=== PATIENT | female | born 1975 | race African-American/Black ===

== ENCOUNTER 2020-10-28 03:16 | Emergency (ER) | payer SELFPAY ==
[2020-10-28 04:12] VITALS: BP 131/77
[2020-10-28 04:45] LABS: Basophils % (Auto) 0.4 % (0.0-1.8); Eosinophils # (Auto) 0.2 K/mm3 (0.0-0.4); Eosinophils % (Auto) 1.9 % (0.0-4.3); Hematocrit 38.7 % (30.3-42.9); Hemoglobin 13.3 gm/dl (10.1-14.3); Lymphocytes # (Auto) 1.2 K/mm3 (1.2-5.4); Lymphocytes % (Auto) 12.7 % (13.4-35.0); Mean Corpuscular HGB Conc 34 % (30-34); Mean Corpuscular Volume 90 fl (79-97); Monocytes # (Auto) 0.9 K/mm3 (0.0-0.8); Monocytes % (Auto) 9.5 % (0.0-7.3); Platelet Count 278 K/mm3 (140-440); Red Cell Distribution Width 12.6 % (13.2-15.2)
[2020-10-28 05:02] LABS: BUN/Creatinine Ratio 18; Blood Urea Nitrogen 9 mg/dL (7-17); Calcium 8.9 mg/dL (8.4-10.2); Hemolysis Index 7
--- NOTE | 2020-10-28 05:37 | XRay Report ---
CHEST 1 VIEW 10/28/2020 5:11 AM INDICATION / CLINICAL INFORMATION: Chest Pain. COMPARISON: None available. FINDINGS: SUPPORT DEVICES: None. HEART / MEDIASTINUM: No significant abnormality. LUNGS / PLEURA: No significant pulmonary or pleural abnormality. No pneumothorax. ADDITIONAL FINDINGS: No significant additional findings. IMPRESSION: 1. No acute findings. Signer Name: Alfonso Colmenares MD Signed: 10/28/2020 5:32 AM Workstation Name: [id number]
--- NOTE | 2020-10-28 09:09 | Emergency Department Report ---
ED General Adult HPI - General Chief complaint: Dyspnea/Respdistress Stated complaint: TIERA Time Seen by Provider: 10/28/20 08:19 Source: patient, family, EMS Mode of arrival: Ambulatory Limitations: Language Barrier - History of Present Illness Initial comments: Patient is a 45-year-old female with history of cerebral aneurysm diagnosed earlier this month at another facility presents emergency department for abrupt onset of shortness of breath, dizziness, and anxiousness at 3 AM which has since resolved. Patient denies headache, denies sensory changes, denies localized weakness. - Related Data Allergies Allergy/AdvReac Type Severity Reaction Status Date / Time No Known Allergies Allergy Unverified 10/28/20 03:40 ED Review of Systems ROS: Stated complaint: TIERA Other details as noted in HPI Comment: All other systems reviewed and negative ED Past Medical Hx - Past Medical History Previous Medical History?: Yes Additional medical history: Cerebral aneurysmAnuerysm surgery on Nov.11 usually goes to [facility] ED Physical Exam - General Limitations: Language Barrier General appearance: alert, in no apparent distress - Head Head exam: Present: atraumatic, normocephalic - Eye Eye exam: Present: normal appearance - ENT ENT exam: Present: mucous membranes moist - Neck Neck exam: Present: normal inspection - Respiratory Respiratory exam: Present: normal lung sounds bilaterally, other (Productive cough). Absent: respiratory distress - Cardiovascular Cardiovascular Exam: Present: regular rate, normal rhythm. Absent: systolic murmur, diastolic murmur, rubs, gallop - GI/Abdominal GI/Abdominal exam: Present: soft, normal bowel sounds - Extremities Exam Extremities exam: Present: normal inspection - Back Exam Back exam: Present: normal inspection - Neurological Exam Neurological exam: Present: alert, oriented X3 - Psychiatric Psychiatric exam: Present: normal affect, normal mood - Skin Skin exam: Present: warm, dry, intact, normal color. Absent: rash ED Course Vital Signs 10/28/20 03:20 Temperature 97.3 F L Pulse Rate 86 Respiratory 17 Rate Blood Pressure 131/77 O2 Sat by Pulse 100 Oximetry - Reevaluation(s) Reevaluation #1: 10/28/20 09:28 Patient evaluated in no acute distress asymptomatic. Patient presents with documentation from 3 separate emergency department visits this month in [facility] and has followed up with her primary care doctor in the meantime. Patient had various points has had CT head, CTA head and neck, D-dimer, cardiac echo. Carlos taylor has upcoming appointment with neurosurgery for evaluation of incidentally found cerebral aneurysm. Patient states at no point as she got coronavirus despite having ongoing productive cough in the emergency department. Patient is advised to follow-up with neurosurgery as scheduled, is advised to follow-up with primary care doctor in 1 to 2 days for reevaluation and coronavirus testing as an outpatient. Lungs remain clear to auscultation on discharge. ED Medical Decision Making - Lab Data Result diagrams: 10/28/20 03:53 10/28/20 03:53 Lab Results 10/28/20 10/28/20 10/28/20 Range/Units 03:53 03:53 03:53 WBC 9.5 (4.5-11.0) K/mm3 RBC 4.30 (3.65-5.03) M/mm3 Hgb 13.3 (10.1-14.3) gm/dl Hct 38.7 (30.3-42.9) % MCV 90 (79-97) fl MCH 31 (28-32) pg MCHC 34 (30-34) % RDW 12.6 L (13.2-15.2) % Plt Count 278 (140-440) K/mm3 Lymph % (Auto) 12.7 L (13.4-35.0) % [place] % (Auto) 9.5 H (0.0-7.3) % Eos % (Auto) 1.9 (0.0-4.3) % Baso % (Auto) 0.4 (0.0-1.8) % Lymph # (Auto) 1.2 (1.2-5.4) K/mm3 [place] # (Auto) 0.9 H (0.0-0.8) K/mm3 Eos # (Auto) 0.2 (0.0-0.4) K/mm3 Baso # (Auto) 0.0 (0.0-0.1) K/mm3 Seg Neutrophils % 75.5 H (40.0-70.0) % Seg Neutrophils # 7.2 (1.8-7.7) K/mm3 Sodium 137 (137-145) mmol/L Potassium 3.3 L (3.6-5.0) mmol/L Chloride 104.3 (98-107) mmol/L Carbon Dioxide 19 L (22-30) mmol/L Anion Gap 17 mmol/L BUN 9 (7-17) mg/dL Creatinine 0.5 L (0.6-1.2) mg/dL Estimated GFR > 60 ml/min BUN/Creatinine Ratio 18 % Glucose 95 (65-100) mg/dL Calcium 8.9 (8.4-10.2) mg/dL Troponin T < 0.010 (0.00-0.029) ng/mL HCG, Qual Negative (Negative) 10/28/20 Range/Units 07:06 WBC (4.5-11.0) K/mm3 RBC (3.65-5.03) M/mm3 Hgb (10.1-14.3) gm/dl Hct (30.3-42.9) % MCV (79-97) fl MCH (28-32) pg MCHC (30-34) % RDW (13.2-15.2) % Plt Count (140-440) K/mm3 Lymph % (Auto) (13.4-35.0) % [place] % (Auto) (0.0-7.3) % Eos % (Auto) (0.0-4.3) % Baso % (Auto) (0.0-1.8) % Lymph # (Auto) (1.2-5.4) K/mm3 [place] # (Auto) (0.0-0.8) K/mm3 Eos # (Auto) (0.0-0.4) K/mm3 Baso # (Auto) (0.0-0.1) K/mm3 Seg Neutrophils % (40.0-70.0) % Seg Neutrophils # (1.8-7.7) K/mm3 Sodium (137-145) mmol/L Potassium (3.6-5.0) mmol/L Chloride (98-107) mmol/L Carbon Dioxide (22-30) mmol/L Anion Gap mmol/L BUN (7-17) mg/dL Creatinine (0.6-1.2) mg/dL Estimated GFR ml/min BUN/Creatinine Ratio % Glucose (65-100) mg/dL Calcium (8.4-10.2) mg/dL Troponin T < 0.010 (0.00-0.029) ng/mL HCG, Qual (Negative) Vital Signs 10/28/20 03:20 Temperature 97.3 F L Pulse Rate 86 Respiratory 17 Rate Blood Pressure 131/77 O2 Sat by Pulse 100 Oximetry - EKG Data -: EKG Interpreted by Me (Sinus rhythm at 80, no ST-T changes, normal QRS) - Radiology Data Radiology results: report reviewed Chest x-ray negative per radiology Critical care attestation.: If time is entered above; I have spent that time in minutes in the direct care of this critically ill patient, excluding procedure time. ED Disposition Clinical Impression: Upper respiratory infection Disposition: DC-01 TO HOME OR SELFCARE Is pt being admited?: No Condition: Stable Instructions: Upper Respiratory Infection, Adult, [id number] Additional Instructions: Follow-up with primary care doctor in 1 to 2 days for reevaluation. Pursue outpatient coronavirus testing as discussed. Return to the emergency department for worsening symptoms. Referrals: PRIMARY CARE, [Primary Care Provider] - 3-5 Days
== END 2020-10-28 09:54 | disposition home or self-care (01) ==
LOC: ED 03:16
DX: J06.9 Acute upper respiratory infection, unspecified (principal)
CPT/HCPCS: 36415; 71045; 80048; 84484; 84703; 85025; 93005